=== PATIENT | male | born 1990 | race African-American/Black ===

== ENCOUNTER 2019-01-01 20:49 | Emergency (ER) | payer OTHER ==
[~2019-01-01] VITALS: Ht 188 cm; Wt 95.2 kg
[2019-01-01] MEDS ORDERED: IBUPROFEN200 M1 PO (20:58)
== END 2019-01-01 22:05 | disposition home or self-care (01) ==
LOC: ED 20:49
DX: S76.112A Strain of left quadriceps muscle, fascia and tendon, initial encounter (principal); X58.XXXA Exposure to other specified factors, initial encounter; Y93.39 Activity, other involving climbing, rappelling and jumping off
CPT/HCPCS: 73560; 99283

== ENCOUNTER 2019-01-13 06:10 | Day surgery (SDC) | payer OTHER ==
[~2019-01-13] VITALS: Ht 188 cm; Wt 93.0 kg
[~2019-01-13 06:10] MED LIST: IBUPROFEN200 M1 PO
--- NOTE | 2019-01-13 09:00 | NUR ---
01/13/19 0900 Luz Maria Coronel 0853 PATIENT ARRIVES TO PACU UNRESPONSIVE TO PAINFUL STIMULI. RESP EVEN AND UNLABORED, ORAL AIRWAY IN PLACE, MASK AT 10 LITERS, SATS 100%, OXYGEN DECREASED TO 6 LITERS.
--- NOTE | 2019-01-13 09:57 | NUR ---
ICED WATER AND PUDDING GIVEN. OFFICERS @ BS.
--- NOTE | 2019-01-13 09:59 | NUR ---
LEGS OF BED ELEVATED. PATIENT REPORTS TRIPLE VISION.
[2019-01-13] MEDS ORDERED: NORCO 5-325 TA1 EACH PO (10:36)
--- NOTE | 2019-01-13 11:25 | NUR ---
LE 1100: PATIENT REPORTS HIS TRIPLE VISION HAS RESOLVED. PATIENT REPORTS "I HAVE TO PEE". CRUTCH GIVEN TO HELP THE PATIENT STAND WHILE VOIDING. OFFICERS ASSIST PATIENT TO STAND AND VOID. OFFICERS REPORT VOIDING MORE THAN 1000 ML - THEY DUMPED THE GRADUATE IN THE MIDDLE OF PATIENT VOIDING. DC INSTRUCTIONS ARE GIVEN AND PATIENT VERBALIZES UNDERSTANDING. PATIENT GETTING DRESSED. PATIENT TRANSFERS HIMSELF TO THE AND TOLERATES THAT WELL. CALL REPORT GIVEN TO NURSE BAUTISTA AND HER QUESTIONS ARE ANSWERED.
--- NOTE | 2019-01-13 12:48 | NUR ---
PT RESTING IN BED-ALERT, ORIENTED AND EOCI GUARDS AT BS. PT SEEMS A LITTLE "SHELLSHOCKED" WITH EVERYTHING HAPPENING TODAY. WORKED TO HELP PT RELAX HE REQUESTED PRAYER. WILL FOLLOW NEEDED
--- NOTE | 2019-01-18 07:11 | OR ---
[facility] [address], [place] [address] Signed DATE OF OPERATION: 01/13/2019 SURGEON: Og Moreno MD PREOPERATIVE DIAGNOSIS: Patellar tendon rupture, left knee. POSTOPERATIVE DIAGNOSIS: Patellar tendon rupture, left knee. PROCEDURE: Patellar tendon reconstruction, left knee. ANESTHESIA: General. SPECIMENS AND COMPLICATIONS: There were no specimens or complications. TOURNIQUET TIME: A little bit under an hour. WHAT WAS DONE: The patient was taken to the operating room. After anesthesia was induced and airway secured, the patient was positioned, prepped and draped in routine sterile fashion. The leg was exsanguinated with elevation. Pneumatic tourniquet was inflated to 300 mmHg pressure. The leg was then approached through a straight anterior incision. Skin and subcutaneous tissue were divided sharply. At this point, the patellar tendon literally just oozed out of the wound. There clearly was an avulsion of the tendon just off the tibia just slightly superior to the tibial tubercle. We were able to lift up the tendon. Looking the knee, the menisci and ACL seemed intact to inspection and palpation. The knee was then copiously irrigated. We then placed several modified Krackow #5 FiberWire sutures through the remnant of the patellar tendon and sutured it back to the base. We then closed the medial and lateral retinacular defects with #2 FiberWire. We then took an additional #5 FiberWire, placed it through two drill holes in the tibial tubercle. We then weaved through the medial retinaculum across the superior border of the patella and down the lateral retinaculum and then tied it anterolaterally. With this in place, we were able to flex the knee to 90 degrees without having any significant tension on the repair. The wound was copiously irrigated and closed in a standard fashion. Sterile Electronically Signed By: OG MORENO MD 01/18/19 0711 PATIENT NAME: ALDAIR ROBERTS OPERATIVE REPORT DATE OF : 89 REPORT #: [id number] PHYSICIAN: OG MORENO MD PCP: CRIS BREWSTER MD REPORT IS CONFIDENTIAL AND NOT TO BE RELEASED WITHOUT AUTHORIZATION [facility] [address] [place] [id number] Signed dressings were applied. The patient was placed in a [facility] [place], locked in full extension, awakened, and taken to recovery room where he arrived in stable condition. Og Moreno MD WFB/MODL /[id number] Copies: ~ Electronically Signed By: OG MORENO MD 01/18/19 0711 PATIENT NAME: ALDAIR ROBERTS OPERATIVE REPORT DATE OF : 89 REPORT #: [id number] PHYSICIAN: OG MORENO MD PCP: CRIS BREWSTER MD REPORT IS CONFIDENTIAL AND NOT TO BE RELEASED WITHOUT AUTHORIZATION
== END 2019-01-13 11:15 | disposition home or self-care (01) ==
LOC: OPS 06:10 → DS 06:10 → OPS 07:30 → DS 08:00 → OPS 11:15
PROVIDERS: Orthopaedic Surgery
PROC: 0LQR0ZZ Repair Left Knee Tendon, Open Approach (ICD-10-PCS; principal; 2019-01-13 07:30)
DX: S86.812A Strain of other muscle(s) and tendon(s) at lower leg level, left leg, initial encounter (principal); X58.XXXA Exposure to other specified factors, initial encounter; Y93.67 Activity, basketball
CPT/HCPCS: 01320; 64447; 64448; 76942; J0690; J1100; J1885; J2250; J2405; J2704; J2765; J3010; J7120